=== PATIENT | female | born 1990 | race Caucasian/White ===

== ENCOUNTER 2017-01-11 11:38 | Emergency (ER) | payer MEDICAID ==
[~2017-01-11] VITALS: Ht 170.2 cm; Wt 83.5 kg
[2017-01-11 12:50] LABS: BASOPHIL % 0.4 % (0-2); PLATELET COUNT 244 x10^3mcL (130-400)
[2017-01-11 12:52] LABS: RED CELL DISTRIBUTION WIDTH 16.3 % (11.5-14.5)
[2017-01-11 14:41] VITALS: BP 118/84
== END 2017-01-11 14:51 | disposition home or self-care (01) ==
LOC: ED 11:38 → EDBD 11:38 → ED 14:51
PROVIDERS: Emergency Medicine
DX: N93.8 Other specified abnormal uterine and vaginal bleeding (principal); N39.0 Urinary tract infection, site not specified; Z88.0 Allergy status to penicillin
CPT/HCPCS: J1885